=== PATIENT | male | born 1955 | race Caucasian/White ===

== ENCOUNTER 2020-04-14 14:33 | Outpatient (CLI) | payer MEDICARE, BC ==
[~2020-04-14 14:33] MED LIST: Iopamidol-370 76% 500 ML 1 ML ONE
[2020-04-14 15:25] LABS: Estimated GFR-MDRD - POC Greater than 90
--- NOTE | 2020-04-14 15:50 | CT ---
CT Abdomen Pelvis W Con: 04/14/2020 12:00 AM CLINICAL INFORMATION: Hepatitis C, Reaglado's esophagitis, reflux and anemia COMPARISON: None. TECHNIQUE: Multiple contiguous axial images were obtained and a CT of the abdomen and pelvis with IV contrast. Oral contrast was administered. Coronal and sagittal reformats were performed. FINDINGS: Lower Chest: Calcifications seen in the coronary arteries. Abdomen: Liver: within normal limits. Bile Ducts: Normal caliber. Gallbladder: No calcified gallstones. Normal caliber wall. Pancreas: within normal limits. Spleen: within normal limits. Adrenals: within normal limits. Kidneys: within normal limits. Pelvis: Reproductive Organs: No pelvic masses. Ureters: within normal limits. Bladder: within normal limits. Peritoneum: No ascites or free air, no fluid collection. Bowel: Normal caliber. Scattered diverticula in the colon. Normal appendix. Mesentery and Retroperitoneum: No enlarged mesenteric or retroperitoneal lymph nodes. Vessels: Dense atherosclerotic calcifications in the aorta. Abdominal Wall: within normal limits. Bones: Within normal limits IMPRESSION: 1. Diverticulosis 2. No evidence of acute abdominal/pelvic abnormality
== END 2020-04-14 14:34 | disposition home or self-care (01) ==
LOC: BICCT 14:33
PROVIDERS: ATTEND Internal Medicine Gastroenterology
DX: D12.6 Benign neoplasm of colon, unspecified (principal); K21.9 Gastro-esophageal reflux disease without esophagitis; Q27.39 Arteriovenous malformation, other site; K22.70 Barrett's esophagus without dysplasia; R76.8 Other specified abnormal immunological findings in serum; D50.9 Iron deficiency anemia, unspecified; K57.30 Diverticulosis of large intestine without perforation or abscess without bleeding
CPT/HCPCS: 74177; 82565; Q9967